=== PATIENT | female | born 1950 | race Caucasian/White ===

== ENCOUNTER → 2025-04-10 | Outpatient (CLI) | payer MEDICARE ==
--- NOTE | 2025-04-10 11:10 | XR ---
EXAMINATION TYPE: XR lumbar spine 2 or 3V DATE OF EXAM: 04/10/2025 9:54 AM COMPARISON: None. CLINICAL INDICATION: Female, 75 years old with history of M54.9 DORSALGIA, UNSPECIFIED, pain TECHNIQUE: 3 view(s) obtained. FINDINGS: There are 5 lumbar-type vertebral bodies. Pedicles are intact. Scoliosis is present. Vertebral body h eights are preserved. There is loss of disc height throughout the lumbar spine were notably at L3-4 a nd laterally at L4-5. Multiple surgical clips are anterior to the aorta. In the lateral projection there is very minimal posterior spondylolisthesis of L3 posterior on L4. IMPRESSION: 1. Minimal posterior spondylolisthesis of L3 on L4. 2. Degenerative disc changes greatest at L3-4, present throughout the lumbar spine. 3. Scoliosis [facility], , 04/10/2025 11:07 AM
== END | disposition home or self-care (01) ==
LOC: RADXRMAIN 09:35
PROVIDERS: ATTEND Internal Medicine Geriatric Medicine
DX: M43.16 Spondylolisthesis, lumbar region (principal); M51.360 Other intervertebral disc degeneration, lumbar region with discogenic back pain only; M41.86 Other forms of scoliosis, lumbar region
CPT/HCPCS: 72100

== ENCOUNTER 2025-05-05 18:42 | Emergency (ER) | payer MEDICARE ==
[2025-05-05 18:51] VITALS: TEMP 97.8
--- NOTE | 2025-05-05 19:08 | ED ---
General Adult HPI - General Chief complaint: ENT Stated complaint: Right ear issues Time Seen by Provider: 05/05/25 18:52 Source: patient, RN notes reviewed Mode of arrival: ambulatory Limitations: no limitations - History of Present Illness Initial comments: 75-year-old female presents to the emergency department for evaluation of right ear muffled hearing. Patient states that for the past 3 days she has noticed muffled hearing in her right ear. She notes that her ear feels "plugged". She denies any pain. She does endorse mild tinnitus. Denies any recent fever, chills. - Related Data Allergies Allergy/AdvReac Type Severity Reaction Status Date / Time No Known Allergies Allergy Verified 05/05/25 18:51 Review of Systems ROS Statement: Those systems with pertinent positive or pertinent negative responses have been documented in the HPI. ROS Other: All systems not noted in ROS Statement are negative. Past Medical History Past Medical History: Cancer, Hyperlipidemia History of Any Multi-Drug Resistant Organisms: None Reported Past Surgical History: Hysterectomy Past Psychological History: Anxiety Smoking Status: Never smoker Past Alcohol Use History: None Reported Past Drug Use History: None Reported General Exam Limitations: no limitations General appearance: alert, in no apparent distress Head exam: Present: atraumatic, normocephalic, normal inspection Eye exam: Present: normal appearance, PERRL, EOMI. Absent: scleral icterus, conjunctival injection, periorbital swelling ENT exam: Present: mucous membranes moist. Absent: TM's normal bilaterally, normal external ear exam (Cerumen impaction to the right ear) Course Vital Signs 05/05/25 18:47 Temperature 97.8 F Pulse Rate 77 Respiratory 20 Rate Blood Pressure 131/69 O2 Sat by Pulse 99 Oximetry Medical Decision Making - Medical Decision Making Was pt. sent in by a medical professional or institution (, PA, BOND WRITER, urgent care, hospital, or assisted...) When possible be specific @ -[No] Did you speak to anyone other than the patient for history (EMS, parent, family, police, friend...)? What history was obtained from this source @ -[No] Did you review nursing and triage notes (agree or disagree)? Why? @ -[I reviewed and agree with nursing and triage notes] Were old charts reviewed (outside hosp., previous admission, EMS record, old EKG, old radiological studies, urgent care reports/EKG's, assisted records)? Report findings @ -[No old charts were reviewed] Differential Diagnosis (chest pain, altered mental status, abdominal pain women, abdominal pain men, vaginal bleeding, weakness, fever, dyspnea, syncope, headache, dizziness, GI bleed, back pain, seizure, CVA, palpatations, mental health, musculoskeletal)? @ -[not applicable] EKG interpreted by me (3pts min.). @ -[As above] X-rays interpreted by me (1pt min.). @ -[None done] CT interpreted by me (1pt min.). @ -[None done] U/S interpreted by me (1pt. min.). @ -[None done] What testing was considered but not performed or refused? (CT, X-rays, U/S, labs)? Why? @ -[None] What meds were considered but not given or refused? Why? @ -[None] Did you discuss the management of the patient with other professionals (prof sujey i.e. , PA, BOND WRITER, lab, RT, psych nurse, social worker aide, joiner helper, teacher, aoc plans intelligence officer chief, case operator)? Give summary @ -[No] Was smoking cessation discussed for >3mins.? @ -[No] Was critical care preformed (if so, how long)? @ -[No] Were there social determinants of health that impacted care today? How? (Homelessness, low income, unemployed, alcoholism, drug addiction, transportation, low edu. Level, literacy, decrease access to med. care, fci, rehab)? @ -[No] Was there de-escalation of care discussed even if they declined (Discuss DNR or withdrawal of care, Hospice)? DNR status @ -[No] What co-morbidities impacted this encounter? (DM, HTN, Smoking, COPD, CAD, Cancer, CVA, ARF, Chemo, Hep., AIDS, mental health diagnosis, sleep apnea, morbid obesity)? @ -[None] Was patient admitted / discharged? Hospital course, mention meds given and route, prescriptions, significant lab abnormalities, going to OR and other pertinent info. @ -[hospital course] Undiagnosed new problem with uncertain prognosis? @ -[No] Drug Therapy requiring intensive monitoring for toxicity (Heparin, Nitro, Insulin, Cardizem)? @ -[No] Were any procedures done? @ -[No] Diagnosis/symptom? @ -[default] Acute, or Chronic, or Acute on Chronic? @ -[default] Uncomplicated (without systemic symptoms) or Complicated (systemic symptoms)? @ -[default] Side effects of treatment? @ -[No] Exacerbation, Progression, or Severe Exacerbation? @ -[No] Poses a threat to life or bodily function? How? (Chest pain, [place], [place], pneumonia, PE, COPD, DKA, ARF, appy, cholecystitis, CVA, Diverticulitis, Homicidal, Suicidal, threat to staff... and all critical care pts) @ -[No] Disposition Clinical Impression: Cerumen impaction Disposition: HOME SELF-CARE Condition: Stable Instructions (If sedation given, give patient instructions): Carbamide Peroxide (Into the ear) Additional Instructions: Please follow-up your doctor. Return to the emergency department for new or worsening symptoms. Is patient prescribed a controlled substance at d/c from ED?: No Referrals: Praneeth Wen MD [Primary Care Provider] - 1-2 days
[2025-05-05] MEDS: CARBAMIDE PEROXIDE 6.5% DROPS 15 ML BTL RIGHT EAR STA (19:39)
[2025-05-05 20:45] VITALS: BP 129/66; PULSE 63; RESP 16
== END 2025-05-05 20:40 | disposition home or self-care (01) ==
LOC: EC 18:42
DX: H61.21 Impacted cerumen, right ear (principal)
CPT/HCPCS: 99282

== ENCOUNTER 2025-05-13 11:03 | Inpatient (IN) | payer MEDICARE ==
[2025-05-13 11:53] LABS: Glucose,Whole Blood 117 mg/dL (70-110)
[2025-05-13] MEDS: SODIUM CHLORIDE 0.9% 500 ML 500 ML IV ONE (11:59)
[2025-05-13 12:03] LABS: Basophils # (A) 0.07 10*3/uL (0.00-0.10); Basophils % (A) 0.6 %; Eosinophils # (A) 0.00 10*3/uL (0.04-0.35); Eosinophils % (A) 0.0 %; HCT 35.6 % (37.2-46.3); HGB 12.3 g/dL (12.0-15.0); Lymphocytes # (A) 0.84 10*3/uL (0.90-5.00); Lymphocytes % (A) 7.8 %; MCH 32.3 pg (27.0-32.0); MCHC 34.6 g/dL (32.0-37.0); MCV 93.4 fL (80.0-97.0); Monocytes # (A) 0.49 10*3/uL (0.20-1.00); Monocytes % (A) 4.5 %; Neutrophils # (A) 9.35 10*3/uL (1.80-7.70); Neutrophils % (A) 86.8 %; Platelet Count 297 10*3/uL (140-440); RBC 3.81 10*6/uL (4.10-5.20); RDW 11.8 % (11.5-14.5); WBC 10.78 10*3/uL (4.50-10.00)
--- NOTE | 2025-05-13 12:12 | XR ---
EXAMINATION TYPE: XR chest 2V DATE OF EXAM: 05/13/2025 12:08 PM COMPARISON: None TECHNIQUE: XR chest 2V Frontal and lateral views of the chest. CLINICAL INDICATION:Female, 75 years old with history of altered mental status; FINDINGS: Lungs/Pleura: There is no evidence of pleural effusion, focal consolidation, or pneumothorax. Pulmonary vascularity: Unremarkable. Heart/mediastinum: Cardiomediastinal silhouette is unremarkable. Musculoskeletal: No acute osseous pathology. IMPRESSION: No acute cardiopulmonary disease/process. [facility], , 05/13/2025 12:10 PM
[2025-05-13 12:20] LABS: ALT 16 U/L (4-34); AST 24 U/L (14-36); Acetaminophen <10.0 ug/mL; African American GFR (CKD) >90 (>60 ml/min/1.73 sqM); Albumin 4.0 g/dL (3.5-5.0); Alkaline Phosphatase 91 U/L (38-126); Anion Gap 8 mmol/L; Blood Urea Nitrogen 14 mg/dL (7-17); Calcium 9.8 mg/dL (8.4-10.2); Carbon Dioxide 24 mmol/L (22-30); Chloride 102 mmol/L (98-107); Glucose 113 mg/dL (74-99); Lactic Acid, Venous 1.1 mmol/L (0.7-2.0); Non-African American GFR(CKD) 88 (>60 ml/min/1.73 sqM); Potassium 4.1 mmol/L (3.5-5.1); Salicylate <1.0 mg/dL; Sodium 134 mmol/L (137-145); Total Protein 6.3 g/dL (6.3-8.2)
[2025-05-13 12:24] LABS: INR 1.0 (<1.2); Prothrombin Time 10.9 sec (10.0-12.5)
[2025-05-13 12:28] LABS: Partial Thromboplastin Time 20.7 sec (22.0-30.0)
--- NOTE | 2025-05-13 12:47 | CT ---
EXAMINATION TYPE: CT brain wo con CT DLP: 1176.4 mGycm, Automated exposure control for dose reduction was used. DATE OF EXAM: 05/13/2025 12:40 PM COMPARISON: None. CLINICAL INDICATION:Female, 75 years old with history of Altered mental status, memory loss, confusio n TECHNIQUE: Brain: Multiple axial CT images of the brain were obtained without IV contrast. . Coronal and sagitta l reformats reviewed. FINDINGS: Brain: Extra-axial spaces: No abnormal extra-axial fluid collections. Ventricular system: Within normal limits Cerebral parenchyma: No acute intraparenchymal hemorrhage or mass effect. The rivera-white junction is well differentiated. Scattered hypoattenuating areas are seen within the periventricular white matte r. Cerebellum: Unremarkable. Mass effect: No evidence of midline shift. Intracranial vasculature: Atherosclerotic calcifications of the intracranial vessels. Soft tissues: Normal. Calvarium/osseous structures: No depressed skull fracture. Paranasal sinuses and mastoid air cells: Clear Visualized orbits: Bilateral aphakia IMPRESSION: 1. No acute intracranial process. 2. Nonspecific white matter changes, likely secondary to chronic small vessel ischemic disease. [facility], , 05/13/2025 12:45 PM
--- NOTE | 2025-05-13 12:58 | ED ---
General Adult HPI - General Chief complaint: Altered Mental Status Stated complaint: Confusion Time Seen by Provider: 05/13/25 11:20 Source: patient, family, EMS, RN notes reviewed, old records reviewed Mode of arrival: EMS Limitations: no limitations - History of Present Illness Initial comments: Patient is a 75-year-old female who presents emergency department for altered mental status. Patient's niece called EMS as she was concerned that the patient was more confused than normal. Patient normally takes care of her own ADLs, lives by herself, is alert and oriented x 4. Currently is alert and oriented x 2-3 with no acute complaints. She denies any chest pain or shortness of breath. Denies any weakness or numbness. Has no other acute complaints at this time. Apparently last known well was sometime yesterday afternoon around 4 PM when she seemed normal at that time. No one spoke with her again until today. She presents for altered mentation with no other obvious acute complaints at this time.Patient is not on blood thinners. Denies any falls. - Related Data Allergies Allergy/AdvReac Type Severity Reaction Status Date / Time No Known Allergies Allergy Verified 05/13/25 11:13 Review of Systems ROS Statement: Those systems with pertinent positive or pertinent negative responses have been documented in the HPI. Review of Systems: CONST: Denies fever EYES: Denies blurry vision ENT: Denies nasal congestion C/V: Denies Chest pain RESP: Denies shortness of breath GI: Denies abdominal pain : Denies dysuria SKIN: Denies rash. MSK: Denies joint pain. NEURO: Denies headache ROS Other: All systems not noted in ROS Statement are negative. Past Medical History Past Medical History: Cancer, Hyperlipidemia History of Any Multi-Drug Resistant Organisms: None Reported Past Surgical History: Hysterectomy Past Psychological History: Anxiety Smoking Status: Never smoker Past Alcohol Use History: None Reported Past Drug Use History: None Reported General Exam - General Exam Comments Initial Comments: General: Appears in no acute distress. HEAD: Normal with no signs of head trauma. EYES: PERRLA, EOMI, conjunctiva normal, no discharge. Pupils are 3 mm and equal bilaterally. ENT: Hearing grossly intact, normal oropharynx. RESPIRATORY: Clear breath sounds bilaterally. No wheezes, rales, or rhonchi. C/V: Regular rate and rhythm. S1 and S2 auscultated, no edema, peripheral pulses 2+ and intact throughout ABD: Abd is soft, nontender, nondistended EXT: Normal range of motion, no obvious deformity SKIN: No rashes or lesions observed on exposed skin. NEURO: Alert and oriented x 2-3. NIH is 0. GCS 15. No obvious focal deficits. Only confusion. Limitations: no limitations Course Vital Signs 05/13/25 05/13/25 11:04 13:10 Temperature 97.8 F Pulse Rate 69 78 Respiratory 15 16 Rate Blood Pressure 122/53 121/51 O2 Sat by Pulse 99 98 Oximetry Medical Decision Making - Medical Decision Making Was pt. sent in by a medical professional or institution (, PA, URBAN DESIGN CONSULTANT, urgent care, hospital, or senior living...) When possible be specific @ -No Did you speak to anyone other than the patient for history (EMS, parent, family, police, friend...)? What history was obtained from this source @ -Spoke with patient's sister as well as niece over the phone who agree that patient is usually ANO x 4 and this is below baseline as she is ANO x 2-3 with confusion to year as well as occasionally specific place. She knows she is not at home and at a hospital but occasionally gets to the wrong hospital. Did you review nursing and triage notes (agree or disagree)? Why? @ -I reviewed and agree with nursing and triage notes Were old charts reviewed (outside hosp., previous admission, EMS record, old EKG, old radiological studies, urgent care reports/EKG's, senior living records)? Report findings @ -No old charts were reviewed Differential Diagnosis (chest pain, altered mental status, abdominal pain women, abdominal pain men, vaginal bleeding, weakness, fever, dyspnea, syncope, headache, dizziness, GI bleed, back pain, seizure, CVA, palpatations, mental health, musculoskeletal)? @ -Differential Altered Mental Status: Hypoglycemia, DKA, hypercapnia, ETOH, overdose, CO poisoning, trauma, myxedema coma, HTN encephalopathy, infection, encephalitis, psychosis, intercranial hemorrhage, hepatic encephalopathy, meningitis, CVA, this is not meant to be an all-inclusive list EKG interpreted by me (3pts min.). @ -As above X-rays interpreted by me (1pt min.). @ -Chest x-ray shows no obvious acute cardiopulmonary process. CT interpreted by me (1pt min.). @ -CT brain shows no obvious acute intracranial process. U/S interpreted by me (1pt. min.). @ -None done What testing was considered but not performed or refused? (CT, X-rays, U/S, labs)? Why? @ -None What meds were considered but not given or refused? Why? @ -None Did you discuss the management of the patient with other professionals (professionals i.e. DrSalvador, PA, URBAN DESIGN CONSULTANT, lab, RT, psych nurse, dialysis social worker, brass roller, teacher, systems support officer, registered nurse hh case manager)? Give summary @ -Discussed with on-call [facility] Dr. Pennington who accepted the admission. Was smoking cessation discussed for >3mins.? @ -No Was critical care preformed (if so, how long)? @ -No Were there social determinants of health that impacted care today? How? (Homelessness, low income, unemployed, alcoholism, drug addiction, transportation, low edu. Level, literacy, decrease access to med. care, correction, rehab)? @ -No Was there de-escalation of care discussed even if they declined (Discuss DNR or withdrawal of care, Hospice)? DNR status @ -No What co-morbidities impacted this encounter? (DM, HTN, Smoking, COPD, CAD, Cancer, CVA, ARF, Chemo, Hep., AIDS, mental health diagnosis, sleep apnea, morbid obesity)? @ -None Was patient admitted / discharged? Hospital course, mention meds given and route, prescriptions, significant lab abnormalities, going to OR and other pertinent info. @ -Based on patient's presentation and physical exam, presents emergency department complaining of altered mental status. NIH is 0. Last known well sometime yesterday at 4 PM. She is intermittently confused to place and is confused to time. We will obtain generalized workup. Patient is in agreement this plan. Vitals are within acceptable limits. Patient be given a [address] brain shows no signs of acute ischemia. Chest x-ray unremarkable. Laboratory studies are all within acceptable limits. We are still waiting for urinalysis. On reevaluation, exam is unchanged. Patient will be admitted at this time for altered mental status. Consult placed to neurology. At time of admission, urinalysis still pending. We will continue to keep attempting to obtain a urine. She was in agreement this plan. I spoke with Dr. Pennington of [facility] who accepted the admission. Undiagnosed new problem with uncertain prognosis? @ -No Drug Therapy requiring intensive monitoring for toxicity (Heparin, Nitro, Ins ulin, Cardizem)? @ -No Were any procedures done? @ -No Diagnosis/symptom? @ -Altered mental status, confusion Acute, or Chronic, or Acute on Chronic? @ -Acute Uncomplicated (without systemic symptoms) or Complicated (systemic symptoms)? @ -Complicated Side effects of treatment? @ -No Exacerbation, Progression, or Severe Exacerbation? @ -No Poses a threat to life or bodily function? How? (Chest pain, [place], [place], pneumonia, PE, COPD, DKA, ARF, appy, cholecystitis, CVA, Diverticulitis, Homicidal, Suicidal, threat to staff... and all critical care pts) @ -Potentially, yes - Lab Data Result diagrams: 05/13/25 11:55 05/13/25 11:55 Lab Results 05/13/25 05/13/25 05/13/25 Range/Units 11:51 11:55 11:55 WBC 10.78 H (4.50-10.00) 10*3/uL RBC 3.81 L (4.10-5.20) 10*6/uL Hgb 12.3 (12.0-15.0) g/dL Hct 35.6 L (37.2-46.3) % MCV 93.4 (80.0-97.0) fL MCH 32.3 H (27.0-32.0) pg MCHC 34.6 (32.0-37.0) g/dL Plt Count 297 (140-440) 10*3/uL MPV 10.6 (9.5-12.2) fL Immature Gran % (Auto) 0.3 % Neutrophils % 86.8 % Lymphocytes % 7.8 % Monocytes % 4.5 % Eosinophils % 0.0 % Basophils % 0.6 % Immature Gran # 0.03 (0.00-0.04) 10*3/uL Neutrophils # 9.35 H (1.80-7.70) 10*3/uL Lymphocytes # 0.84 L (0.90-5.00) 10*3/uL Monocytes # 0.49 (0.20-1.00) 10*3/uL Eosinophils # 0.00 L (0.04-0.35) 10*3/uL Basophils # 0.07 (0.00-0.10) 10*3/uL PT 10.9 (10.0-12.5) sec INR 1.0 (<1.2) APTT 20.7 L (22.0-30.0) sec Sodium (137-145) mmol/L Potassium (3.5-5.1) mmol/L Chloride (98-107) mmol/L Carbon Dioxide (22-30) mmol/L Anion Gap mmol/L BUN (7-17) mg/dL Creatinine (0.52-1.04) mg/dL Est GFR (CKD-EPI)AfAm (>60 ml/min/1.73 sqM) Est GFR (CKD-EPI)NonAf (>60 ml/min/1.73 sqM) Glucose (74-99) mg/dL POC Glucose (mg/dL) 117 H (70-110) mg/dL POC Glu [place] Operator ID Low Rodriguez Plasma Lactic Acid Godfrey (0.7-2.0) mmol/L Calcium (8.4-10.2) mg/dL Total Bilirubin (0.2-1.3) mg/dL AST (14-36) U/L ALT (4-34) U/L Alkaline Phosphatase (38-126) U/L Ammonia (<30) umol/L Total Protein (6.3-8.2) g/dL Albumin (3.5-5.0) g/dL Salicylates mg/dL Acetaminophen ug/mL Serum Alcohol mg/dL 05/13/25 05/13/25 Range/Units 11:55 11:55 WBC (4.50-10.00) 10*3/uL RBC (4.10-5.20) 10*6/uL Hgb (12.0-15.0) g/dL Hct (37.2-46.3) % MCV (80.0-97.0) fL MCH (27.0-32.0) pg MCHC (32.0-37.0) g/dL Plt Count (140-440) 10*3/uL MPV (9.5-12.2) fL Immature Gran % (Auto) % Neutrophils % % Lymphocytes % % Monocytes % % Eosinophils % % Basophils % % Immature Gran # (0.00-0.04) 10*3/uL Neutrophils # (1.80-7.70) 10*3/uL Lymphocytes # (0.90-5.00) 10*3/uL Monocytes # (0.20-1.00) 10*3/uL Eosinophils # (0.04-0.35) 10*3/uL Basophils # (0.00-0.10) 10*3/uL PT (10.0-12.5) sec INR (<1.2) APTT (22.0-30.0) sec Sodium 134 L (137-145) mmol/L Potassium 4.1 (3.5-5.1) mmol/L Chloride 102 (98-107) mmol/L Carbon Dioxide 24 (22-30) mmol/L Anion Gap 8 mmol/L BUN 14 (7-17) mg/dL Creatinine 0.62 (0.52-1.04) mg/dL Est GFR (CKD-EPI)AfAm >90 (>60 ml/min/1.73 sqM) Est GFR (CKD-EPI)NonAf 88 (>60 ml/min/1.73 sqM) Glucose 113 H (74-99) mg/dL POC Glucose (mg/dL) (70-110) mg/dL POC Glu [place] Operator ID Plasma Lactic Acid Godfrey 1.1 (0.7-2.0) mmol/L Calcium 9.8 (8.4-10.2) mg/dL Total Bilirubin 0.7 (0.2-1.3) mg/dL AST 24 (14-36) U/L ALT 16 (4-34) U/L Alkaline Phosphatase 91 (38-126) U/L Ammonia <9 (<30) umol/L Total Protein 6.3 (6.3-8.2) g/dL Albumin 4.0 (3.5-5.0) g/dL Salicylates <1.0 mg/dL Acetaminophen <10.0 ug/mL Serum Alcohol <10 mg/dL - EKG Data -: EKG Interpreted by Me EKG Comments: 12-lead Electrocardiogram Interpretation Note EKG was reviewed and interpreted by myself. 12-lead ECG performed at 1144 is interpreted by me as revealing normal sinus rhythm at a rate of 73 beats per minute. Energy is normal. QRS duration is 94 ms, QTc is 425 ms. PAC present.. There were no ST or T wave abnormalities to suggest myocardial ischemia or injury. R wave progression across the precordium was satisfactory. By my interpretation this EKG is non-diagnostic for acute ischemia. Disposition Clinical Impression: Altered mental status, Confusion Disposition: ADMITTED IP TO THIS HOSP Condition: Stable Time of Disposition: 13:45
[2025-05-13] MEDS ORDERED: ONDANSETRON 4 MG/2 ML VIAL IVP PRN (13:53)
[2025-05-13] MEDS ORDERED: NALOXONE 0.4 MG/ML 1 ML VIAL IV PRN (13:53)
[2025-05-13 15:18] LABS: Bilirubin,Urine Negative (Negative); Blood,Urine Negative (Negative); Color,Urine Colorless; Glucose,Urine (UA) Negative (Negative); Ketones,Urine Trace (Negative); Leukocyte Esterase,Urine Negative (Negative); Nitrite,Urine Negative (Negative); PH, Urine 7.0 (5.0-8.0); Protein,Urine Negative (Negative); RBC,Urine 4 /hpf (0-5); Specific Gravity,Urine 1.015 (1.001-1.035); Squamous Epithelial Cell,Urine <1 /hpf (0-4); Urobilinogen,Urine <2.0 mg/dL (<2.0); WBC,Urine <1 /hpf (0-5)
[2025-05-13 15:20] LABS: Barbiturate Screen,Urine Not Detected (NotDetected); Benzodiazepines Screen,Urine Detected (NotDetected); Opiate Screen,Urine Not Detected (NotDetected); Oxycodone Screen, Urine Not Detected (NotDetected); Phencyclidine Screen,Urine Not Detected (NotDetected); Tricyclic Antidepressant,Urine Not Detected (NotDetected); Urn Cannabinoid Scrn Not Detected (NotDetected)
[2025-05-13] MEDS ORDERED: ALPRAZolam 0.25 MG TAB PO PRN (17:53)
[2025-05-13] MEDS ORDERED: BACLOFEN 10 MG TAB PO PRN (17:53)
[2025-05-14] MEDS: ATORVASTATIN 80 MG TAB PO SCH (08:24)
[2025-05-14] MEDS: FAMOTIDINE 20 MG TAB PO SCH (08:24)
[2025-05-14] MEDS: ESCITALOPRAM 5 MG TAB PO SCH (08:24)
[2025-05-14 09:05] LABS: Basophils # (A) 0.04 X 10*3/uL (0.00-0.10); Basophils % (A) 0.4 %; Eosinophils # (A) 0.02 X 10*3/uL (0.04-0.35); Eosinophils % (A) 0.2 %; HCT 36.5 % (37.2-46.3); HGB 12.0 g/dL (12.0-15.0); Immature Grans, Automated 0.30 %; Lymphocytes # (A) 1.22 X 10*3/uL (0.90-5.00); Lymphocytes % (A) 11.8 %; MCH 31.0 pg (27.0-32.0); MCHC 32.9 g/dL (32.0-37.0); MCV 94.3 FL (80.0-97.0); Monocytes # (A) 0.88 X 10*3/uL (0.20-1.00); Monocytes % (A) 8.5 %; NRBC Per 100 WBC 0 X 10*3/uL (0.00-0.01); Neutrophils # (A) 8.13 X 10*3/uL (1.80-7.70); Neutrophils % (A) 78.8 %; Platelet Count 264 X 10*3/uL (140-440); RBC 3.87 X 10*6/uL (4.10-5.20); RDW 11.9 % (11.5-14.5); WBC 10.32 X 10*3/uL (4.50-10.00)
[2025-05-14 09:07] LABS: ALT 16 U/L (8-44); AST 22 U/L (13-35); Albumin 3.9 g/dL (3.8-4.9); Albumin/Globulin Ratio 2.05 Ratio (1.60-3.17); Alkaline Phosphatase 89 U/L (41-126); Anion Gap 12.80 mmol/L (4.00-12.00); BUN/Creat Ratio 20.00 Ratio (12.00-20.00); Blood Urea Nitrogen 12.0 mg/dL (9.0-27.0); Calcium 9.1 mg/dL (8.7-10.3); Carbon Dioxide 22.2 mmol/L (21.6-31.8); Chloride 97 mmol/L (96-109); Globulin 1.9 g/dL (1.6-3.3); Glucose 114 mg/dL (70-110); Potassium 4.1 mmol/L (3.5-5.5); Sodium 132 mmol/L (135-145); Total Protein 5.8 g/dL (6.2-8.2)
[2025-05-14 11:59] LABS: Glucose,Whole Blood 93 mg/dL (70-110)
--- NOTE | 2025-05-14 15:14 | P.HPIM ---
History of Present Illness H&P Date: 05/13/25 Chief Complaint: Acute mental status 75-year-old female who presents emergency department for altered mental status. Patient's niece called EMS as she was concerned that the patient was more confused than normal. Patient normally takes care of her own ADLs, lives by herself, is alert and oriented x 4. Currently is alert and oriented x 2-3 with no acute complaints. She denies any chest pain or shortness of breath. Denies any weakness or numbness. Has no other acute complaints at this time. Apparently last known well was sometime yesterday afternoon around 4 PM when she seemed normal at that time. No one spoke with her again until today. She presents for altered mentation with no other obvious acute complaints at this time.Patient is not on blood thinners. Denies any falls. Blood work completed in the ED reveals WBC of 10.7, hemoglobin of 12.3 and platelet count of 297, sodium 134, potassium 4.1, BUN/creatinine of 14/0.[address] of the brain is negative for any acute intracranial process. Nonspecific white matter changes secondary to chronic small vessel ischemic disease Patient is being admitted for further neurology evaluation Review of Systems ROS unobtainable: due to mental status Past Medical History Past Medical History: Cancer, Hyperlipidemia History of Any Multi-Drug Resistant Organisms: None Reported Past Surgical History: Hysterectomy Past Psychological History: Anxiety Smoking Status: Never smoker Past Alcohol Use History: None Reported Past Drug Use History: None Reported Medications and Allergies Home Medications Medication Instructions Recorded Confirmed Type ALPRAZolam [Xanax] 0.25 mg PO TID PRN 05/13/25 05/13/25 History Atorvastatin [Lipitor] 80 mg PO DAILY 05/13/25 05/13/25 History Baclofen 5 mg PO BID PRN 05/13/25 05/13/25 History Escitalopram [Lexapro] 5 mg PO DAILY 05/13/25 05/13/25 History Famotidine [Pepcid] 20 mg PO DAILY 05/13/25 05/13/25 History Allergies Allergy/AdvReac Type Severity Reaction Status Date / Time No Known Allergies Allergy Verified 05/13/25 16:56 Physical Exam Vitals: Vital Signs Temp Pulse Pulse Resp BP BP Pulse Ox 05/13/25 15:21 97.8 F 82 18 146/59 97 05/13/25 15:00 97.9 F 68 14 138/69 98 05/13/25 13:10 78 16 121/51 98 05/13/25 11:04 97.8 F 69 15 122/53 99 Intake and Output 05/13/25 05/13/25 05/13/25 06:59 14:59 22:59 Other: Weight 63.503 kg General: Appears in no acute distress. HEAD: Normal with no signs of head trauma. EYES: PERRLA, EOMI, conjunctiva normal, no discharge. Pupils are 3 mm and equal bilaterally. ENT: Hearing grossly intact, normal oropharynx. RESPIRATORY: Clear breath sounds bilaterally. No wheezes, rales, or rhonchi. C/V: Regular rate and rhythm. S1 and S2 auscultated, no edema, peripheral pulses 2+ and intact throughout ABD: Abd is soft, nontender, nondistended EXT: Normal range of motion, no obvious deformity SKIN: No rashes or lesions observed on exposed skin. NEURO: Alert and oriented x 2-3. NIH is 0. GCS 15. No obvious focal deficits. Only confusion. Results CBC & Chem 7: 05/14/25 03:40 05/14/25 03:40 Labs: Abnormal Lab Results - Last 24 Hours (Table) 05/13/25 05/13/25 05/13/25 Range/Units 11:51 11:55 11:55 WBC 10.78 H (4.50-10.00) 10*3/uL RBC 3.81 L (4.10-5.20) 10*6/uL Hct 35.6 L (37.2-46.3) % MCH 32.3 H (27.0-32.0) pg Neutrophils # 9.35 H (1.80-7.70) 10*3/uL Lymphocytes # 0.84 L (0.90-5.00) 10*3/uL Eosinophils # 0.00 L (0.04-0.35) 10*3/uL APTT 20.7 L (22.0-30.0) sec Sodium (137-145) mmol/L Glucose (74-99) mg/dL POC Glucose (mg/dL) 117 H (70-110) mg/dL Urine Appearance (Clear) Urine Ketones (Negative) U Benzodiazepines Scrn (NotDetected) 05/13/25 05/13/25 Range/Units 11:55 11:55 WBC (4.50-10.00) 10*3/uL RBC (4.10-5.20) 10*6/uL Hct (37.2-46.3) % MCH (27.0-32.0) pg Neutrophils # (1.80-7.70) 10*3/uL Lymphocytes # (0.90-5.00) 10*3/uL Eosinophils # (0.04-0.35) 10*3/uL APTT (22.0-30.0) sec Sodium 134 L (137-145) mmol/L Glucose 113 H (74-99) mg/dL POC Glucose (mg/dL) (70-110) mg/dL Urine Appearance Cloudy H (Clear) Urine Ketones Trace H (Negative) U Benzodiazepines Scrn Detected H (NotDetected) Thrombosis Risk Factor Assmnt - Choose All That Apply Each Risk Factor Represents 3 Points: Age 75 years or older Thrombosis Risk Factor Assessment Total Risk Factor Score: 3 Thrombosis Risk Factor Assessment Level: Moderate Risk Assessment and Plan Assessment: Altered mental status -CT of the brain completed in ED is negative for any acute intracranial process; specific white matter changes, likely secondary to chronic small vessel ischemia - Patient is admitted for further neurology evaluation - Continue to monitor neurochecks per protocol Leukocytosis; no signs of infection; possibly reactive Hyperlipidemia; Lipitor 80 mg daily GERD/gastritis; Pepcid 20 mg daily Anxiety/depression; Xanax 0.25 mg 3 times daily as needed and Lexapro 5 mg daily DVT prophylaxis; SCDs CODE STATUS; full code
--- NOTE | 2025-05-14 15:15 | P.PN ---
Subjective Progress Note Date: 05/14/25 75-year-old female who presents emergency department for altered mental status. Patient's niece called EMS as she was concerned that the patient was more confused than normal. Patient normally takes care of her own ADLs, lives by herself, is alert and oriented x 4. Currently is alert and oriented x 2-3 with no acute complaints. She denies any chest pain or shortness of breath. Denies any weakness or numbness. Has no other acute complaints at this time. Apparently last known well was sometime yesterday afternoon around 4 PM when she seemed normal at that time. No one spoke with her again until today. She presents for altered mentation with no other obvious acute complaints at this time.Patient is not on blood thinners. Denies any falls. Blood work completed in the ED reveals WBC of 10.7, hemoglobin of 12.3 and platelet count of 297, sodium 134, potassium 4.1, BUN/creatinine of 14/0.[address] of the brain is negative for any acute intracranial process. Nonspecific whi te matter changes secondary to chronic small vessel ischemic disease Patient is being admitted for further neurology evaluation --Reports does not feel she is at baseline at this time; awaits neurology evaluation Objective - Vital Signs Vital signs: Vital Signs Temp 98 F 05/14/25 08:35 Pulse 67 05/14/25 08:35 Resp 16 05/14/25 08:35 BP 114/50 05/14/25 08:35 Pulse Ox 97 05/14/25 08:35 FiO2 Intake & Output 05/13/25 05/14/25 05/14/25 18:59 06:59 18:59 Intake Total 540 0 120 Balance 540 0 120 Weight 63.503 kg Intake: Intake, IV Titration 0 Amount Sodium Chloride 0.9% 500 0 ml 500 ml @ 999 mls/hr IV .Q31M ONE Rx#:[id number] Oral 540 120 Other: # Voids 2 1 - Exam General: Appears in no acute distress. HEAD: Normal with no signs of head trauma. EYES: PERRLA, EOMI, conjunctiva normal, no discharge. Pupils are 3 mm and equal bilaterally. ENT: Hearing grossly intact, normal oropharynx. RESPIRATORY: Clear breath sounds bilaterally. No wheezes, rales, or rhonchi. C/V: Regular rate and rhythm. S1 and S2 auscultated, no edema, peripheral pulses 2+ and intact throughout ABD: Abd is soft, nontender, nondistended EXT: Normal range of motion, no obvious deformity SKIN: No rashes or lesions observed on exposed skin. NEURO: Alert and oriented x 2-3. NIH is 0. GCS 15. No obvious focal deficits. Only confusion. - Labs CBC & Chem 7: 05/14/25 03:40 05/14/25 03:40 Labs: Abnormal Lab Results - Last 24 Hours (Table) 05/13/25 05/13/25 05/13/25 Range/Units 11:55 11:55 11:55 WBC (4.50-10.00) X 10*3/uL RBC (4.10-5.20) X 10*6/uL Hct (37.2-46.3) % Neutrophils # (1.80-7.70) X 10*3/uL Eosinophils # (0.04-0.35) X 10*3/uL APTT 20.7 L (22.0-30.0) sec Sodium 134 L (137-145) mmol/L Anion Gap (4.00-12.00) mmol/L Glucose 113 H (74-99) mg/dL Total Protein (6.2-8.2) g/dL Urine Appearance Cloudy H (Clear) Urine Ketones Trace H (Negative) U Benzodiazepines Scrn Detected H (NotDetected) 05/14/25 05/14/25 Range/Units 03:40 03:40 WBC 10.32 H (4.50-10.00) X 10*3/uL RBC 3.87 L (4.10-5.20) X 10*6/uL Hct 36.5 L (37.2-46.3) % Neutrophils # 8.13 H (1.80-7.70) X 10*3/uL Eosinophils # 0.02 L (0.04-0.35) X 10*3/uL APTT (22.0-30.0) sec Sodium 132 L (137-145) mmol/L Anion Gap 12.80 H (4.00-12.00) mmol/L Glucose 114 H (74-99) mg/dL Total Protein 5.8 L (6.2-8.2) g/dL Urine Appearance (Clear) Urine Ketones (Negative) U Benzodiazepines Scrn (NotDetected) Assessment and Plan Assessment: Altered mental status -CT of the brain completed in ED is negative for any acute intracranial process; specific white matter changes, likely secondary to chronic small vessel ischemia - Patient is admitted for further neurology evaluation - Continue to monitor neurochecks per protocol Leukocytosis; no signs of infection; possibly reactive Hyperlipidemia; Lipitor 80 mg daily GERD/gastritis; Pepcid 20 mg daily Anxiety/depression; Xanax 0.25 mg 3 times daily as needed and Lexapro 5 mg daily DVT prophylaxis; SCDs CODE STATUS; full code
--- NOTE | 2025-05-14 15:33 | P.CNNES ---
History of Present Illness Consult date: 05/14/25 Requesting physician: Gabe Cottrell Reason for Consult: altered mental status, confusion History of Present Illness: This is a 75-year-old woman who presents the emergency department because of confusion. Patient sister is at bedside who provides some of the history. Seems that the patient woke up at 7 AM and was confused. Patient does not recall what transpired over the last 1 week according to the patient's sister. She was recently started on baclofen 5 mg 1 tablet 3 times daily as well as escitalopram also 5 mg twice daily since May 03, 2025. Patient does not have any focal deficit, any headache, any nausea any vomiting any visual disturbances or slurred speech difficulty. She still does not recall what transpired over the past 1 week in details. She does not have any history of seizures. She vincent s have underlying history of depression. It seems that diagnosis of dementia but the sister notified the nurse but patient denies that. Some of the work-up during this hospital visit consisted of: I reviewed the lab workup Urine drug screen is positive for benzo. Otherwise rest is nondetected. CT of the head is reported as no acute intracranial process. I personally reviewed the CT and I agree with the report. Review of Systems As per HPI Past Medical History Past Medical History: Cancer, Hyperlipidemia History of Any Multi-Drug Resistant Organisms: None Reported Past Surgical History: Hysterectomy Past Psychological History: Anxiety Smoking Status: Never smoker Past Alcohol Use History: None Reported Past Drug Use History: None Reported Medications and Allergies Home Medications Medication Instructions Recorded Confirmed Type ALPRAZolam [Xanax] 0.25 mg PO TID PRN 05/13/25 05/13/25 History Atorvastatin [Lipitor] 80 mg PO DAILY 05/13/25 05/13/25 History Baclofen 5 mg PO BID PRN 05/13/25 05/13/25 History Escitalopram [Lexapro] 5 mg PO DAILY 05/13/25 05/13/25 History Famotidine [Pepcid] 20 mg PO DAILY 05/13/25 05/13/25 History Allergies Allergy/AdvReac Type Severity Reaction Status Date / Time No Known Allergies Allergy Verified 05/13/25 16:56 Physical Examination - Vital Signs Vital Signs: Vital Signs Temp Pulse Resp BP Pulse Ox 05/14/25 08:35 98 F 67 16 114/50 97 05/14/25 01:05 98.4 F 74 17 106/63 98 05/14/25 01:03 81 17 05/13/25 20:00 17 05/13/25 18:58 98.2 F 81 17 115/66 98 Intake and Output 05/14/25 05/14/25 05/14/25 06:59 14:59 22:59 Intake Total 360 Balance 360 Intake: Oral 360 Other: # Voids 2 1 GENERAL: The patient is lying in bed and is not in acute distress. NEUROLOGICAL: Higher mental function: The patient is awake, alert, oriented to self, place and time. Patient is following commands. No aphasia and no neglect. Cranial nerves: The pupils are round, equal and reactive to light and accommodation. Visual el[place] are full to confrontation throughout. Extraocular movement is intact no nystagmus is noted. Facial sensation is normal to touch throughout. The facial strength is normal throughout. Hearing is severely decreased bilaterally to hand rub. Tongue is midline and moved [id number] without any difficulty. No dysarthria is noted. Shoulder shrug is normal bilaterally. Motor: The strength is 5 over 5 throughout. Normal tone and bulk. Cerebellum: Normal finger to nose bilaterally. Sensation: Sensation is normal to touch throughout. Reflexes (right/left): 2+ throughout Plantars are downgoing bilaterally. Results - Laboratory Findings CBC and BMP: 05/14/25 03:40 05/14/25 03:40 Abnormal Lab Findings: Abnormal Labs 05/13/25 05/13/25 05/13/25 11:51 11:55 11:55 WBC 10.78 H RBC 3.81 L Hct 35.6 L MCH 32.3 H Neutrophils # 9.35 H Lymphocytes # 0.84 L Eosinophils # 0.00 L APTT 20.7 L Sodium Anion Gap Glucose POC Glucose (mg/dL) 117 H Total Protein Urine Appearance Urine Ketones U Benzodiazepines Scrn 05/13/25 05/13/25 05/14/25 11:55 11:55 03:40 WBC 10.32 H RBC 3.87 L Hct 36.5 L MCH Neutrophils # 8.13 H Lymphocytes # Eosinophils # 0.02 L APTT Sodium 134 L Anion Gap Glucose 113 H POC Glucose (mg/dL) Total Protein Urine Appearance Cloudy H Urine Ketones Trace H U Benzodiazepines Scrn Detected H 05/14/25 03:40 WBC RBC Hct MCH Neutrophils # Lymphocytes # Eosinophils # APTT Sodium 132 L Anion Gap 12.80 H Glucose 114 H POC Glucose (mg/dL) Total Protein 5.8 L Urine Appearance Urine Ketones U Benzodiazepines Scrn Assessment and Plan Assessment: This is a 75-year-old woman who presents emergency department because of confusion and it seems that she had confusion this past Thursday but according to the sister she does not recall what transpired over the last 1 week. 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 CT of the head is unremarkable Plan: I ordered MRI of the brain, carotid duplex, TSH, vitamin B12, folate Ordered routine EEG which will be completed tomorrow Recommend avoiding baclofen and Escitalopram. Continue neurochecks Will defer the rest of the medical management to primary other specialist Plan discussed with the patient and her sisters at bedside. Also discussed with nurse Thank for the consultation Dr. María martino neurology service tomorrow a.m. Time with Patient: Greater than 30
--- NOTE | 2025-05-14 17:02 | US ---
EXAMINATION TYPE: US carotid duplex BILAT DATE OF EXAM: 05/14/2025 COMPARISON: NONE CLINICAL INDICATION: Female, 75 years old with history of stroke; memory loss Additional History: .... TECHNIQUE: Grayscale, color Doppler and spectral Doppler evaluation of the bilateral carotid systems and vertebral arteries. Indirect Doppler criteria was utilized. FINDINGS: EXAM MEASUREMENTS: RIGHT: Peak Systolic Velocity (PSV) cm/sec ----- Right CCA: 103 ----- Right ICA: 111 ----- Right ECA: 141 ICA/CCA ratio: 1.1 RIGHT: End Diastole cm/sec ----- Right CCA: 18.2 ----- Right ICA: 22.1 ----- Right ECA: 0 LEFT: Peak Systolic Velocity (PSV) cm/sec ----- Left CCA: 191 ----- Left ICA: 149 ----- Left ECA: 194 ICA/CCA ratio: 0.8 LEFT: End Diastole cm/sec ----- Left CCA: 25.5 ----- Left ICA: 25.3 ----- Left ECA: 12.8 VERTEBRALS (direction of flow): Right Vertebral: Antegrade Left Vertebral: Antegrade Rhythm: Normal MELTER CASTER NOTES: No significant stenosis seen Color Doppler imaging shows patency with blood flow throughout the carotid artery. Spectral waveforms are within normal limits. IMPRESSION: Right: Less than 50% stenosis of the carotid bifurcation. Left: Less than 50% stenosis of the carotid bifurcation. Criteria for Assigning % of Stenosis / Diameter reduction (Estimation based on the indirect measurements of the internal carotid artery velocities (ICA PSV). 1. Normal (no stenosis)=ICA PSV < 180 cm/s: ratio < 2.0: ICA EDV<40 cm/s. 2. Less than 50% stenosis=ICA PSV < 180 cm/s: ratio < 2.0: ICA EDV<40 cm/s. 3. 50 to 69% stenosis=ICA PSV of 180 to 230 cm/s: ration 2.0 ? 4.0: ICA EDV 40-100 cm/s. PSV 125-180 cm/sec and ICA/CCA PSV Ratio ? 2.0 is also consistent with 50-69% stenosis 4. Greater than 70% stenosis to near occlusion= ICA PSV > 230 cm/s: ratio > 4.0: ICA EDV > 100 cm/s. 5. Near occlusion= ICA PSV velocities may be low or undetectable: variable ratio and ICA EDV. 6. Total occlusion=unable to detect flow. [facility], , 05/14/2025 5:00 PM
[2025-05-14 17:12] LABS: Glucose,Whole Blood 109 mg/dL (70-110)
[2025-05-14 19:52] LABS: Glucose,Whole Blood 123 mg/dL (70-110)
[2025-05-14 23:42] LABS: African American GFR (CKD) >90 (>60 ml/min/1.73 sqM); Anion Gap 9 mmol/L; Blood Urea Nitrogen 13 mg/dL (7-17); Calcium 9.9 mg/dL (8.4-10.2); Carbon Dioxide 25 mmol/L (22-30); Chloride 107 mmol/L (98-107); Glucose 97 mg/dL (74-99); Magnesium 2.1 mg/dL (1.6-2.3); Non-African American GFR(CKD) 87 (>60 ml/min/1.73 sqM); Potassium 3.7 mmol/L (3.5-5.1); Sodium 141 mmol/L (137-145)
[2025-05-15 00:27] LABS: Vitamin B12 890.0 pg/mL (200.0-944.0)
[2025-05-15 06:05] LABS: Glucose,Whole Blood 98 mg/dL (70-110)
[2025-05-15 11:07] LABS: Anion Gap 13.40 mmol/L (4.00-12.00); BUN/Creat Ratio 14.43 Ratio (12.00-20.00); Blood Urea Nitrogen 10.1 mg/dL (9.0-27.0); Calcium 9.3 mg/dL (8.7-10.3); Carbon Dioxide 21.6 mmol/L (21.6-31.8); Chloride 108 mmol/L (96-109); Glucose 102 mg/dL (70-110); Potassium 3.5 mmol/L (3.5-5.5); Sodium 143 mmol/L (135-145)
[2025-05-15 12:13] LABS: Glucose,Whole Blood 97 mg/dL (70-110)
[2025-05-15 17:13] LABS: Glucose,Whole Blood 88 mg/dL (70-110)
--- NOTE | 2025-05-15 19:27 | MR ---
INDICATION: Patient age:Female; 75 years old; Reason for study: confusion; PHH. COMPARISON: CT brain 05/13/2025. TECHNIQUE: Multi planar, multi sequence imaging was performed through the brain. The patient was then given 10 cc of Gadobutrol intravenously and multi planar, T1 fat-saturation images were obtained. FINDINGS: The rivera-white junctions, ventricular system, basal cisterns appear unremarkable. Age-appropriate cer ebral volume loss. Diffusion-weighted imaging shows no evidence of restricted diffusion to suggest ac sandie/subacute infarct. Intracranial arterial flow voids are maintained. Midline structures show no abn ormality. Few patchy periventricular foci of high T2/FLAIR signal intensity. The susceptibility weigh sai images do not reveal any evidence for micro-hemorrhage. After administration of gadolinium, no ab normal enhancement is seen. The bone marrow signal is within normal limits. Bilateral aphakia. The paranasal sinuses are unremar kable.. IMPRESSION: 1. No evidence of intracranial mass, acute/subacute infarct, or abnormal enhancement. 2. Minimal nonspecific white matter changes, likely related to small vessel ischemic disease. [facility], , 05/15/2025 7:25 PM
[2025-05-15 20:18] LABS: Glucose,Whole Blood 184 mg/dL (70-110)
--- NOTE | 2025-05-15 20:24 | P.PN ---
Subjective 75-year-old female who presents emergency department for altered mental status. Patient's niece called EMS as she was concerned that the patient was more confused than normal. Patient normally takes care of her own ADLs, lives by herself, is alert and oriented x 4. Currently is alert and oriented x 2-3 with no acute complaints. She denies any chest pain or shortness of breath. Denies any weakness or numbness. Has no other acute complaints at this time. Apparently last known well was sometime yesterday afternoon around 4 PM when she seemed normal at that time. No one spoke with her again until today. She presents for altered mentation with no other obvious acute complaints at this time.Patient is not on blood thinners. Denies any falls. Blood work completed in the ED reveals WBC of 10.7, hemoglobin of 12.3 and platelet count of 297, sodium 134, potassium 4.1, BUN/creatinine of 14/0.[address] of the brain is negative for any acute intracranial process. Nonspecific white matter changes secondary to chronic small vessel ischemic disease Patient is being admitted for further neurology evaluation --Reports does not feel she is at baseline at this time; awaits neurology evaluation 05/15 Patient awake and alert today place person, she has insight. She feels no specific signs symptoms Her main medical problem is a memory problem She has been a lot yesterday and today no dysuria She does not like the hospital foods Patient counseled to quit Xanax as it might contribute to her dizziness and she agrees 05/15 Patient admitted with dizziness and confusion with encephalopathy Currently improved clinically with treatment she is alert awake oriented to time place person, she has sharp mentation. Denies any specific symptoms like headache dizziness weakness numbness no chest pain or dyspnea. Her only main complaint is memory problem No dysuria but she is peeing a lot yesterday and today therefore we will check urine analysis and bladder scan. Agrees to step design Counseled that this might contribute to her confusion and dizziness Patient has good appetite but she does not like the hospital food Review of systems CONSTITUTIONAL: No fever, no malaise, no fatigue. HEENT: No recent visual problems or hearing problems. Denied any sore throat. CARDIOVASCULAR: No orthopnea, PND, no palpitations, no syncope. PULMONARY: No shortness of breath, no cough, no hemoptysis. GASTROINTESTINAL: No diarrhea, no nausea, no vomiting, no abdominal pain. Normoactive bowel sounds. NEUROLOGICAL: No headaches, no weakness, no numbness. HEMATOLOGICAL: Denies any bleeding or petechiae. Active Medications Generic Name Dose Route Start Last Admin Trade Name Jarad PRN Reason Stop Dose Admin Atorvastatin Calcium 80 mg 05/14/25 09:00 05/15/25 08:34 Atorvastatin 80 Mg Tab PO 80 mg DAILY ILDA Administration Baclofen 5 mg 05/13/25 17:53 Baclofen 10 Mg Tab PO BID PRN back pain Escitalopram Oxalate 5 mg 05/14/25 09:00 05/15/25 13:42 Escitalopram 5 Mg Tab PO Not Given DAILY ILDA Famotidine 20 mg 05/14/25 09:00 05/15/25 08:34 Famotidine 20 Mg Tab PO 20 mg DAILY ILDA Administration Naloxone HCl 0.2 mg 05/13/25 13:53 Naloxone 0.4 Mg/Ml 1 Ml Vial IV Q2M PRN Opioid Reversal Ondansetron HCl 4 mg 05/13/25 13:53 Ondansetron 4 Mg/2 Ml Vial IVP Q8HR PRN Nausea And Vomiting Objective - Vital Signs Vital signs: Vital Signs Temp 98.1 F 05/15/25 07:00 Pulse 81 05/15/25 07:00 Resp 16 05/15/25 07:00 BP 132/73 05/15/25 07:00 Pulse Ox 99 05/15/25 07:00 FiO2 Intake & Output 05/14/25 05/15/25 05/15/25 18:59 06:59 18:59 Intake Total 600 118 Balance 600 118 Intake: Oral 600 118 Other: # Voids 1 1 - Exam GENERAL: The patient is alert and oriented x3, not in any acute distress. Well developed, well nourished. HEENT: Pupils are round and equally reacting to light. EOMI. No scleral icterus. No conjunctival pallor. Normocephalic, atraumatic. No pharyngeal erythema. No thyromegaly. CARDIOVASCULAR: S1 and S2 present. No murmurs, rubs, or gallops. PULMONARY: Chest is clear to auscultation, no wheezing , no crackles. ABDOMEN: Soft, nontender, nondistended, normoactive bowel sounds. No palpable organomegaly. MUSCULOSKELETAL: No joint swelling or deformity. EXTREMITIES: No cyanosis, clubbing, or pedal edema. NEUROLOGICAL: Gross neurological examination did not reveal any focal deficits. SKIN: No rashes. no petechiae. - Labs CBC & Chem 7: 05/14/25 03:40 05/15/25 05:48 Labs: Abnormal Lab Results - Last 24 Hours (Table) 05/13/25 05/14/25 05/15/25 Range/Units 11:55 19:48 05:48 Anion Gap 13.40 H (4.00-12.00) mmol/L POC Glucose (mg/dL) 123 H (70-110) mg/dL Folate 36.40 H (4.40-31.00) ng/mL Assessment and Plan Assessment: Altered mental status -CT of the brain completed in ED is negative for any acute intracranial process; specific white matter changes, likely secondary to chronic small vessel ischemia - Patient is admitted for further neurology evaluation - Continue to monitor neurochecks per protocol -Evaluated by neurologist, MRI of the brain and EEG are pending as well as B12 and folate Leukocytosis; no signs of infection; possibly reactive Hyperlipidemia; Lipitor 80 mg daily GERD/gastritis; Pepcid 20 mg daily Anxiety/depression; Xanax 0.25 mg 3 times daily as needed and Lexapro 5 mg daily DVT prophylaxis; SCDs CODE STATUS; full code
--- NOTE | 2025-05-15 21:37 | P.PN ---
Subjective Progress Note Date: 05/15/25 Patient was initially seen by Dr. Gregory Zuñiga. Please refer to his note for details. Patient is a 75-year-old female with transient global amnesia. Patient states she is doing better, but not back to baseline yet. She denies any headache. Patient apparently was started on baclofen and Lexapro few days prior to onset of the symptoms. Patient probably had side effect of the medication. All workup has been negative as mentioned below. Objective - Vital Signs Vital signs: Vital Signs Temp 98.7 F 05/15/25 19:04 Pulse 83 05/15/25 19:04 Resp 16 05/15/25 19:04 BP 134/69 05/15/25 19:04 Pulse Ox 100 05/15/25 19:04 FiO2 Intake & Output 05/15/25 05/15/25 05/16/25 06:59 18:59 06:59 Intake Total 118 Balance 118 Intake: Oral 118 Other: # Voids 1 3 - Exam Patient is alert and awake. She knows it is April 2025 and that she is in [facility] in [place]. She knows it is the hospital but could not tell the name and has to struggle to get the [facility]. She knows name of the current president Mr. Mendoza. Speech and language functions are normal. Strength is normal. No ataxia, sensations normal, visual [place] full. Face is symmetric. - Labs CBC & Chem 7: 05/14/25 03:40 05/15/25 05:48 Labs: Abnormal Lab Results - Last 24 Hours (Table) 05/13/25 05/15/25 05/15/25 Range/Units 11:55 05:48 20:06 Anion Gap 13.40 H (4.00-12.00) mmol/L POC Glucose (mg/dL) 184 H (70-110) mg/dL Folate 36.40 H (4.40-31.00) ng/mL Assessment and Plan Assessment: This is a 75-year-old woman who presents emergency department because of confusion and it seems that she had confusion this past Thursday but according to the sister she does not recall what transpired over the last 1 week. 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 CT of the head is unremarkable Plan: MRI of the brain revealed no evidence of intracranial mass, acute/subacute infarct or abnormal enhancement. Minimal nonspecific white matter changes, likely related to small vessel ischemic disease. I personally reviewed MRI agree with the findings. Carotid Doppler revealed less than 50% stenosis of carotid bifurcation on either side. Antegrade flow in both vertebral arteries. Ammonia less than 9. B12 890, folate 36.4, TSH is normal 2.0. EEG was performed, which was abnormal due to mild background slowing and presence of frontal intermittent rhythmic delta activity, which is suggestive of mild encephalopathy. No epileptiform activity was seen. Recommend avoiding baclofen and Escitalopram. Continue neurochecks Will defer the rest of the medical management to primary other specialist Neurologically clear for discharge. Discussed with patient's nurse.
--- NOTE | 2025-05-15 23:30 | EEG ---
ELECTROENCEPHALOGRAM REPORT PREAMBLE: This is a 75-year-old female with altered mental status. The patient came with possible transient global amnesia. EEG FINDINGS: This is a 21-channel digital EEG recorded with video component, utilizing 10/20 international system with referential and bipolar montages. Background consists of well-developed, moderately well regulated, mixed frequencies of low-voltage fast frequency beta intermixed with some 9 hertz alpha activity seen in bihemispheric region. Background is posterior dominant and is reactive to eye opening and closing. Photic driving response was not clearly seen. Some frontal and intermittent rhythmic delta activity was seen during this study. Some drowsiness was seen with appearance of bilaterally symmetric theta frequency rhythm, but deeper stages of sleep were not seen. No focal or generalized epileptiform activity was seen. IMPRESSION: This is a borderline abnormal EEG due to presence of excessive amount of low-voltage fast beta activity and presence of frontal intermittent rhythmic delta activity. This pattern may be seen with medication effect or mild encephalopathy. No focal, lateralized or epileptiform activity was seen otherwise. MMODL / IJN: [id number] /
[2025-05-16 01:47] VITALS: TEMP 98.3
[2025-05-16 06:11] LABS: Glucose,Whole Blood 97 mg/dL (70-110)
[2025-05-16 07:35] VITALS: RESP 16
[2025-05-16 12:14] LABS: Glucose,Whole Blood 90 mg/dL (70-110)
[2025-05-16 13:07] VITALS: BP 127/69; PULSE 77
== END 2025-05-16 13:24 | disposition home or self-care (01) | DRG 71 ==
LOC: EC 11:03 → 6NMEDSUR 13:53 → OBSVTOIN 05-15 20:24
PROVIDERS: ADMIT Internal Medicine; ATTEND Internal Medicine
DX: G45.4 Transient global amnesia (principal); G93.40 Encephalopathy, unspecified; F32.A Depression, unspecified; D72.828 Other elevated white blood cell count; K21.9 Gastro-esophageal reflux disease without esophagitis; K29.70 Gastritis, unspecified, without bleeding; F41.9 Anxiety disorder, unspecified; E78.5 Hyperlipidemia, unspecified; Z79.899 Other long term (current) drug therapy
CPT/HCPCS: 36415; 70450; 70553; 71046; 80048; 80053; 80143; 80179; 80306; 80320; 81001; 82140; 82607; 82746; 83605; 83735; 84443; 85025; 85610; 85730; 93005; 93880; 95816; 99285